=== PATIENT | female | born 1935 | race Caucasian/White ===

== ENCOUNTER 2023-02-01 17:15 | Emergency (ER) | payer MEDICARE, BC ==
[2023-02-01] MEDS ORDERED: Glucagon,Human Recombinant 1 MG Vial IVPUSH ONE (17:28)
[2023-02-01] MEDS ORDERED: Ondansetron 4 MG/2 ML SDV IVPUSH ONE (17:29)
[2023-02-01] MEDS: Sodium Chloride 0.9% 10 ML Syringe FLUSH PRN ×2 (17:40→17:44)
[2023-02-01 18:05] LABS: HEMATOCRIT 36.6 % (34.2-48.2); HEMOGLOBIN 12.3 g/dL (11.4-15.5); MEAN CORPUSCULAR HEMOGLOBIN 30.9 pg (23.9-33.9); MEAN CORPUSCULAR HGB CONC 33.6 g/dL (31.9-34.8); MEAN PLATELET VOLUME 9.7 fL (7.1-12.4); PLATELET COUNT,PLT 93 x10(3)uL (151-488); RED BLOOD CELL COUNT 3.98 x10(6)uL (3.60-5.20); RED CELL DISTRIBUTION WIDTH 16.1 % (12.3-16.5); WHITE BLOOD CELL COUNT,WBC 4.7 x10-3/uL (3.0-10.3)
[2023-02-01 18:06] LABS: BLOOD UREA NITROGEN,BUN 14 mg/dL (7-18); BUN/CREATININE RATIO 12.7 (9-20); CALCIUM 9.2 mg/dL (8.6-10.2); CARBON DIOXIDE,CO2 30 mmol/L (21-32); CHLORIDE,CL 101 mmol/L (100-110); CREATININE 1.1 mg/dL (0.55-1.02); ESTIMATED GFR 49 mL/min (>60); GLUCOSE RANDOM 181 mg/dL (80-116); POTASSIUM,K 3.7 mmol/L (3.5-5.3); SODIUM,NA 134 mmol/L (135-145)
[2023-02-01 18:21] LABS: EOSINOPHILS PERCENT MAN 1 % (0-5); LYMPHOCYTES PERCENT MAN 21 % (13-37); MONOCYTES PERCENT MAN 6 % (4-12); SEG NEUTROPHILS PERCENT MAN 72 % (46-82)
== END 2023-02-01 19:04 | disposition home or self-care (01) ==
LOC: FB.ED 17:15
DX: T18.128A Food in esophagus causing other injury, initial encounter (principal); K22.2 Esophageal obstruction; Z88.2 Allergy status to sulfonamides
CPT/HCPCS: 36415; 80048; 85025; 93005; 96374; 96375; 99285-25; J1610; J2405; J3490